=== PATIENT | female | born 1965 | race Caucasian/White ===

== ENCOUNTER 2020-08-22 09:52 | Emergency (ER) | payer MEDICAID ==
[~2020-08-22] VITALS: Ht 162.6 cm; Wt 71.0 kg
[2020-08-22] MEDS ORDERED: ONDANSETRON HCL 4MG/2ML INJ IV STA (10:10)
[2020-08-22] MEDS ORDERED: MORPHINE SULFATE 4 MG/ML CPJ (NOT FOR IM USE) IV STA (10:10)
[2020-08-22] MEDS ORDERED: TETANUS, DIPHTHERIA, PERTUSSIS VAC/PF 0.5ML (>7YR OLD) IM ONE (10:15)
[2020-08-22] MEDS ORDERED: SODIUM CHLORIDE 0.9% 1,000 ML IV ONE (10:15)
[2020-08-22 10:30] LABS: CHLORIDE 109 mEq/L (98-107)
[2020-08-22 10:32] LABS: INR 1.2; PROTHROMBIN TIME 12.7 sec (9.6-11.0)
[2020-08-22 10:34] LABS: BASOPHILS % 0.8 % (0.0-2.0); EOSINOPHILS % 2.4 % (0.0-5.0); LYMPHOCYTES % 27.1 % (20.0-50.0); MEAN CORPUSCULAR HEMOGLOBIN 23.3 pg (28.0-32.0); MEAN PLATELET VOLUME 7.4 fl (7.4-10.4); MONOCYTES % 14.9 % (2.0-8.0); NEUTROPHILS % 54.8 % (40.0-76.0); PLATELET 322 x1000/uL (130-400); RED BLOOD CELL COUNT 2.47 mill/uL (4.2-5.4); RED CELL DISTRIBUTION WIDTH 23.9 % (11.6-14.6)
[2020-08-22] MEDS: POTASSIUM CHLORIDE 20MEQ TABLET SR PO NR ×3 (10:45→11:48)
[2020-08-22 10:49] LABS: HEMATOCRIT. 18.5 % (36.0-48.0); HEMOGLOBIN. 5.7 g/dL (12.0-16.0)
[2020-08-22] MEDS ORDERED: IOHEXOL-300 100 ML BOTTLE ONE (11:19)
[2020-08-22 11:47] VITALS: BP 117/59
[2020-08-22 11:59] LABS: PLATELET ESTIMATE NORMAL
== END 2020-08-23 11:55 | disposition short-term general hospital (02) ==
LOC: ER 10:07
DX: S31.619A Laceration without foreign body of abdominal wall, unspecified quadrant with penetration into peritoneal cavity, initial encounter (principal); E87.6 Hypokalemia; K74.60 Unspecified cirrhosis of liver; D64.9 Anemia, unspecified; F15.10 Other stimulant abuse, uncomplicated; R06.02 Shortness of breath; R53.1 Weakness; F17.200 Nicotine dependence, unspecified, uncomplicated; F10.20 Alcohol dependence, uncomplicated; W26.8XXA Contact with other sharp object(s), not elsewhere classified, initial encounter; Y93.89 Activity, other specified; Y92.89 Other specified places as the place of occurrence of the external cause; Y99.8 Other external cause status; Y90.9 Presence of alcohol in blood, level not specified
CPT/HCPCS: 36415; 71045; 71260; 74177; 80053; 83690; 85025; 85610; 86850; 86900; 86901; 86920; 90471; 90715; 93005; 96361; 96374; 96375; 99291; J2270; J2405; J7030; Q9967; Z7610; 99285; P9016